=== PATIENT | male | born 1965 | race Caucasian/White ===

== ENCOUNTER → 2023-06-18 08:45 | Outpatient (REF) | payer OTHER, SELFPAY | LOC: RAD 08:45 | PROVIDERS: ATTENDING PHYSICIAN Nurse Practitioner Family | DX: M25.531 Pain in right wrist (principal); M79.641 Pain in right hand | CPT/HCPCS: 73110; 73130 ==

== ENCOUNTER → 2024-02-25 06:52 | Outpatient (REF) | payer BC, SELFPAY | LOC: RCS 06:52 | PROVIDERS: ATTENDING PHYSICIAN Student in an Organized Health Care Education/Training Program; FAMILY PHYSICIAN Internal Medicine | DX: I25.10 Atherosclerotic heart disease of native coronary artery without angina pectoris (principal); Z95.3 Presence of xenogenic heart valve | CPT/HCPCS: 93306 ==

== ENCOUNTER 2025-01-08 09:47 | Emergency (ER) | payer BC, SELFPAY ==
[2025-01-08 09:50] VITALS: BP 143/75
[2025-01-08 10:00] VITALS: BP 149/76; BMI 22.5
--- NOTE | 2025-01-08 10:05 | ED.GENMED ---
History of Present Illness
General
Chief Complaint: Musculo-Skeletal Complaint
Source: patient
Time Seen by Provider: 01/08/25 09:54
History of Present Illness
History of Present Illness:
59-year-old male with extensive cardiac past medical history including two previous TN, aortic stenosis status post aortic valve replacement, CHF, CAD, hypertension, hyperlipidemia who presents to the emergency department after he was working here
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 Patient notes that exertion seems to exacerbate the symptoms and since
arriving to the ER also has been experiencing pain to the right shoulder blade. He endorses some mild lightheadedness but is otherwise denying any diaphoresis, shortness of breath, cough, pleurisy or hemoptysis, lower extremity edema. Patient did
take both his aspirin and Plavix this morning as directed. No fevers or other infectious symptoms.
Past History
Past History
ED Past Medical History: Arrthythmia (afib), CAD, CHF, HTN, Hypercholesterolemia, TN, Valvular disease (), Psychiatric (depression) and Other (Cardiomyopathy, Sleep apnea, CPAPA, )
ED Past Surgical History: Cardiac (Pacemaker, stents X 2) and Other (Hernia repair)
Social History
Tobacco: Former smoker
Alcohol: None
Drug: None
Personal:
Living: with family
Employment: Employed
Family History
Family History: Hypertension
Review of Systems
Review of Systems
All Other Systems: ROS reviewed and negative except as documented in HPI and ROS
Phy Exam
Physical Exam
Physical Exam:
GENERAL: Alert , in no apparent distress
HEAD: Normocephalic atraumatic
EYE: conjunctiva clear
NECK: Supple, no significant adenopathy.
ENT: o/p clr, mmm.
CARDIAC: Regular rate and rhythm
LUNGS: Clear breath sounds bilaterally, no acute respiratory distress, no wheezes/rales/rhonchi
NEUROLOGICAL: Alert and oriented
SKIN: Warm and dry, skin intact.
MUSCULOSKELETAL: well perfused. Easily palpable radial pulse bilaterally. Patient does allow for full range of motion of both upper extremities, does report some discomfort with elbow flexion and extension but states he did also have that when he
had his previous TN
PSYCH: Normal and appropriate interaction.
Scores
Heart Failure Risk
Heart Failure Risk Score: Not Applicable
Heart Score for Chest Pain Patients
STEMI patient?: No
History: Moderately Suspicious
ECG: Nonspecific Repolarization
Age: >45 - <65 years
Risk Factors: >/= 3 Risk Factors or History of CAD
Troponin: </= Normal Limit
Heart Score for Chest Pain Patients: 5
Heart Score Risk: 20.3% MACE over next 6 weeks
Withdrawal Assessment of Alcohol
Withdrawal Assessment Completed?: Not applicable
Course
Orders/Labs/Results
Orders:
Orders
01/08/25 09:49
Electrocardiogram (*1) Urgent
Reason for Study: Chest Pain
EKG- Treatment ONCE
01/08/25 10:02
Electrocardiogram (*1) Urgent
Reason for Study: Chest Pain
EKG- Treatment ONCE
01/08/25 10:03
CR Chest - 2 Views Urgent
Comment:
Reason For Exam: chest pain
01/08/25 10:05
Complete Blood Count/With Diff Urgent
Comprehensive Metabolic Panel Urgent
Troponin I Urgent
01/08/25 10:07
Aspirin Chewable [Low Strength Aspirin] 243 mg PO NOW STA
01/08/25 13:00
Troponin I Urgent
Abnormal Lab Results
01/08/25
10:05
MCH 31.4 H pg
(27.0-31.0)
MPV 11.6 H fL
(7.4-10.4)
Absolute Neuts (auto) 7.6 H 10^3/uL
(1.4-6.5)
Neutrophils % 78.2 H %
(42.2-75.2)
Lymphocytes % 13.9 L %
(20.5-51.1)
Sodium 132 L mmol/L
(135-145)
BUN 21 H mg/dl
(9-20)
Glucose 129 H mg/dl
(70-99)
01/08/25 10:05
01/08/25 10:05
Vital Signs
Initial and Last Documented VS:
Initial Vital Signs
Temp Pulse Resp BP Pulse Ox
98.1 F 76 16 143/75 96
01/08/25 09:50 01/08/25 09:50 01/08/25 09:50 01/08/25 09:50 01/08/25 09:50
Last Documented Vital Signs
Temp Pulse Resp BP Pulse Ox
98.1 F 56 16 106/56 95
01/08/25 09:50 01/08/25 12:00 01/08/25 11:54 01/08/25 11:54 01/08/25 11:54
MDM/Problems Addressed
Differential Diagnosis Includes:
Muscular pain
Forearm strain
Bursitis
Radiculopathy
ACS
Cardiac Arrhythmia
Valvular dysfunction
Dissection
MDM/Problems Addressed:
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 Patient is hemodynamically stable and in no acute distress.
EKG done in triage shows a normal sinus rhythm at a rate of 71 bpm, he does have new T wave inversions inferiorly. Performed cardiac workup. Additional three 81 mg aspirin tablets ordered. Will consult with cardiology pending remaining workup.
*Pulse Oximetry
SaO2: 99
Oxygen Mode of Delivery: Room air
Patient hypoxic: no
*Critical Care Note
Total Time (30-74mins, 75-104mins- exclusive of procedures): Not Applicable
Patient Management
Discussion with other providers: Dormitory Supervisor
Escalation/DeEscalation of care consider admission/obs:
Patient seen by cardiology who feels symptoms are more likely to be muscular in nature which I do also agree with given the clear reproducibility of the symptoms. Given his history cardiology did offer keep the patient with plans to perform cardiac
catheterization tomorrow if patient so chose, patient ultimately wished to be discharged home. His repeat troponin is negative. Will notify the chest pain hotline for follow-up. Stable for discharge and aware of return precautions
ED Attending Note
-
Portions of this chart may have been created with voice recognition software.� Occasional wrong word or��sound alike� substitutions may have occurred due to the inherent limitations of voice recognition software.
Discharge Plan
Departure
Patient Disposition: Home (Routine Discharge)
Date of Disposition: 01/08/25
Time of Disposition: 13:46
Patient with high blood pressure during this ER visit?: No
Discharge Problem:
Pain of right upper extremity
Instructions: Chest Pain CBC Follow Up
Prescriptions:
No Action
aspirin 81 MG tablet,delayed release (DR/EC)
81 mg PO DAILY
ranolazine 500 MG tablet extended release 12 hr
500 mg PO BID Qty: 180 3RF
Entresto 49-51 mg tablet
1 tab PO BID
atorvastatin 80 mg Tablet
80 mg PO QPM Qty: 30 2RF
acetaminophen 325 mg Tablet
650 mg PO Q4HPRN PRN (Reason: mild pain,headache,temp >101F ) Qty: 60 0RF
nitroglycerin 0.3 mg Tablet, Sublingual
0.3 mg SUBLINGUAL Q5-15M PRN (Reason: chest pain)
warfarin 10 mg Tablet
10 mg PO SUMO
dofetilide [Tikosyn] 500 mcg Capsule
500 mcg PO DAILY
carvedilol 6.25 mg tablet
3.125 mg PO BID
warfarin [Jantoven] 5 mg tablet
5 mg PO TUWETHFRSA
meclizine [Antivert] 25 mg tablet,chewable
25 mg PO Q8HPRN PRN (Reason: nausea or vertigo) Qty: 20 0RF
Referrals:
Es Davis MD [Family Provider, Internal Medicine]
Interventions
Interventions:
*Risk Screen - Suicide Last Done: 01/08/25 09:50
*General Assessment Last Done: 01/08/25 10:02
*Neglect/Abuse Screening Last Done: 01/08/25 09:50
*ED- Fall Risk Assessment Last Done: 01/08/25 10:02
*ED COVID-19 Vaccine History Last Done: 01/08/25 10:02
*ED Influenza Vaccine History Last Done: 01/08/25 10:02
ED-Musculoskeletal Assessment Last Done: 01/08/25 10:04
Discharge Date and Time
Print Language: MALAGASY
[2025-01-08 10:15] LABS: Hematocrit 44.4 % (39.0-52.0); Hemoglobin 15.0 g/dL (13.0-18.0); Mean Corp Hgb Conc. 33.8 g/dL (33.0-37.0); Mean Corpuscular Volume 93.1 fL (80.0-94.0); Nucleated Red Blood Cells % 0 % (-); Platelet Count 153 10^3/uL (130-400); Red Cell Dist. Width 12.7 % (11.5-14.5)
[2025-01-08] MEDS: LOW STRENGTH ASPIRIN 243 MG PO (10:15)
[2025-01-08 10:37] LABS: ALT (SGPT) 21 U/L (0-50); AST (SGOT) 22 U/L (17-59); Albumin 4.3 g/dl (3.5-5.0); Alkaline Phosphatase 74 U/L (38-126); Blood Urea Nitrogen 21 mg/dl (9-20); Calcium 9.3 mg/dl (8.4-10.2); Carbon Dioxide 22 mmol/L (22-30); Chloride 104 mmol/L (98-107); Estimated Creatinine Clearance 84 ml/min; Glucose 129 mg/dl (70-99); Potassium 4.2 mmol/L (3.5-5.1); Sodium 132 mmol/L (135-145); Total Protein 6.8 g/dl (6.3-8.2); eGFR > 60.00
[2025-01-08 10:50] LABS: Troponin I < 0.012 ng/ml
[2025-01-08 11:54] VITALS: BP 106/56
[2025-01-08 12:00] VITALS: BP 99/60
--- NOTE | 2025-01-08 12:28 | CON.CAR ---
Consultation
Consultation Request
Date/Time Consultation Requested: 01/08/25
Date/Time Consultation Performed:
Requesting Provider: Faraz Catalan
Performing Provider: Dr Golden
Reason for Consultation: cp
Medical History
-
History of Present Illness:
59 year old male known from prior outpatient and inpatient visits. Cardiac history as noted below currently folllowing with Dr Prather who presents with right arm discomfort. Patient states he has been in his usual state of health and exercises
regularly including walking 2 miles multiple times a day and doing other physical activities. He recently over the last 3 days is having some intermittent right arm discomfort he says he will notice this in the right scapular area right shoulder
with some numbness and abnormal sensation in his right elbow and forearm. Symptoms are mainly noted when he is working with his arms above his head. 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
his head. Symptoms started about 3 days ago he noticed it a bit more yesterday and it kept recurring today every time he would go to do the work above his head it would occur he to stop for about 5 minutes symptoms would resolve but then it would
recur when he resume the activity. Despite having the symptoms he was able to walk on the treadmill for 5 miles on Thursday with no complaints. No complaints of shortness of breath. He remembers having arm discomfort and tingling with some of his
angina in the past so it raised his concern. It is unclear in discussion with him if he also had left arm symptoms at that time. He is not currently having complaints of shortness of breath which was part of his presentation in the past. He has
been compliant with medical therapy
.
PMH
OK and LAD stenting 2013
CAD
Stenting of proximal diagonal. Stenting of LAD into proximal diagonal 2020
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
Chronic RCA occlusion
ICD
AVR, bio AVR 2022
VT.
TIFFANIE
Past Medical History
Past Medical History: Other (As noted)
Social History
Tobacco: Former Smoker
Employment: Other (Works at [employer])
Family History
Family History: Other (Grandparents with CAD. Mother with heart disease nonspecific)
Allergies / Home Medications
Allergy/AdvReac Type Severity Reaction Status Date / Time
procaine HCl (From Novocain) Allergy Anaphylaxis Verified 11/09/22 08:08
�Medication �Instructions �Recorded �Confirmed �Type
aspirin 81 mg tablet,delayed 81 mg PO DAILY Blood clot 03/31/14 11/09/22 History
release prevention/tx
ranolazine 500 mg tablet,extended 500 mg PO BID #180 tabs 05/14/19 11/09/22 Rx
release,12 hr
sacubitril 49 mg-valsartan 51 mg 1 tab PO BID Heart Failure 07/22/22 11/09/22 History
tablet (Entresto)
acetaminophen 325 mg tablet 650 mg (2 x 325 mg) PO Q4HPRN PRN 10/04/22 11/09/22 Rx
mild pain,headache,temp >101F #60
tabs
atorvastatin 80 mg tablet 80 mg PO QPM #30 tabs 10/04/22 11/09/22 Rx
carvedilol 6.25 mg tablet 3.125 mg PO BID 11/09/22 11/09/22 History
dofetilide 500 mcg capsule 500 mcg PO DAILY 11/09/22 11/09/22 History
(Tikosyn)
meclizine 25 mg chewable tablet 25 mg PO Q8HPRN PRN nausea or 11/09/22 Rx
(Antivert) vertigo #20 tabs
nitroglycerin 0.3 mg sublingual 0.3 mg sublingual Q5-15M PRN chest 11/09/22 11/09/22 History
tablet pain
warfarin 10 mg tablet 10 mg PO SUMO 11/09/22 11/09/22 History
warfarin 5 mg tablet (Jantoven) 5 mg PO TUWETHFRSA 09/03/23 09/03/23 History
Review of Systems
-
All other systems: Negative unless noted
Physical Exam
Vital Signs
Temp Pulse Resp BP Pulse Ox
98.1 F 56 16 106/56 95
01/08/25 09:50 01/08/25 12:00 01/08/25 11:54 01/08/25 11:54 01/08/25 11:54
Lab Results
01/08/25 10:05
01/08/25 10:05
Troponin I < 0.012 ng/ml 01/08/25 10:05
Physical Exam
General: Well Developed and Well Nourished
HEENT: Normocephalic and Anicteric
Respiratory: Clear and Other (No wheezes rales or rhonchi)
Cardiac: Regular Rhythm and Other (Left upper chest ICD site fine.)
GI: Non Tender and Other (Positive bowel sounds no overt splenomegaly)
Musculoskeletal: No Clubbing, No Cyanosis, No Edema and Other (While patient had his elbow bent at 90 degrees I had him raise his arm up and abducted 90 degrees. Arm was held in this position for a brief period of time for patient had reproducible
symptoms of some scapular discomfort shoulder discomfort with some radiation of feeling down his arm to his elbow )
Neuro: Awake and Alert
Impression / Plan
-
.
Right arm and shoulder discomfort. Although patient reports having some arm symptoms as part of his presentation with angina in the past today he just has focal right arm symptoms which are reproducible on exam by raising his arm above his head and
creating some abduction. This clearly reproduce the symptoms he is reporting and then the symptoms resolved shortly after putting his arm down. Clearly there is a musculoskeletal cause for his the symptoms. Not clear that he is having a second
type of cause for his arm discomfort. I specked a lot of his symptoms have been precipitated by the fact that he has to work with his arms above his head as part of his job. I explained to him if he has any additional concern that he is having
other symptoms besides what was reproduced with movement of his arm then we could admit him for observation.
- Continue current medical therapy
- Additional observation in ER
- If patient remains pain-free and troponins are unremarkable then may be reasonable to discharge with additional outpatient follow-up but patient will need further assessment by Ortho or PCP to adjust address his right upper extremity issues
particularly since he has to do physical activity as part of his job.
- If patient has any additional concerns regarding chest discomfort or shortness of breath or is having other symptoms that are not related to position then we could admit for further observation. Otherwise I will plan for additional outpatient
cardiac testing as a further evaluation particularly since he has to do physical activity as part of his job
Data Reviewed
-
EKG: Report Reviewed by me
Radiology: Report Reviewed by me
Medical Tests (Nuc Med, Echo etc): Discussed with Physician
Labs: Labs Reviewed by me
[2025-01-08 13:00] VITALS: BP 118/67
[2025-01-08 13:36] LABS: Troponin I < 0.012 ng/ml
== END 2025-01-08 14:15 | disposition home or self-care (01) ==
LOC: EMR 09:47
PROVIDERS: Physician Assistant Medical; EMERGENCY PHYSICIAN Student in an Organized Health Care Education/Training Program; FAMILY PHYSICIAN Internal Medicine
DX: M79.621 Pain in right upper arm (principal); I25.10 Atherosclerotic heart disease of native coronary artery without angina pectoris; I48.91 Unspecified atrial fibrillation; I42.8 Other cardiomyopathies; I35.0 Nonrheumatic aortic (valve) stenosis; I11.0 Hypertensive heart disease with heart failure; I50.9 Heart failure, unspecified; E78.00 Pure hypercholesterolemia, unspecified; I25.2 Old myocardial infarction; G47.33 Obstructive sleep apnea (adult) (pediatric); F32.A Depression, unspecified; Z79.82 Long term (current) use of aspirin; Z79.02 Long term (current) use of antithrombotics/antiplatelets; Z95.0 Presence of cardiac pacemaker; Z95.3 Presence of xenogenic heart valve; Z95.5 Presence of coronary angioplasty implant and graft; Z87.891 Personal history of nicotine dependence; Z82.49 Family history of ischemic heart disease and other diseases of the circulatory system
CPT/HCPCS: 99285; 71046; 80053; 84484; 85025; 93005

== ENCOUNTER → 2025-01-11 11:34 | Outpatient (REF) | payer BC, SELFPAY | LOC: HWRCS 11:34 | PROVIDERS: ATTENDING PHYSICIAN Internal Medicine Cardiovascular Disease; FAMILY PHYSICIAN Internal Medicine | DX: I25.10 Atherosclerotic heart disease of native coronary artery without angina pectoris (principal); R07.89 Other chest pain | CPT/HCPCS: 78452; 93017; A9500; J2785 ==

== ENCOUNTER → 2025-01-23 07:44 | Outpatient (REF) | payer BC, SELFPAY ==
[2025-01-23 10:17] LABS: ALT (SGPT) 24 U/L (0-50); AST (SGOT) 22 U/L (17-59); Albumin 4.3 g/dl (3.5-5.0); Alkaline Phosphatase 75 U/L (38-126); Blood Urea Nitrogen 24 mg/dl (9-20); Calcium 9.2 mg/dl (8.4-10.2); Carbon Dioxide 27 mmol/L (22-30); Chloride 103 mmol/L (98-107); Glucose 98 mg/dl (70-99); HDL Cholesterol 35 mg/dl; LDL Cholesterol, Calculated 65 mg/dl; Potassium 5.4 mmol/L (3.5-5.1); Sodium 134 mmol/L (135-145); Total Protein 7.0 g/dl (6.3-8.2); Very Low Density Lipoprotein 13 mg/dl (0-30); eGFR > 60.00
== END ==
LOC: REG 07:44
PROVIDERS: ATTENDING PHYSICIAN Student in an Organized Health Care Education/Training Program; FAMILY PHYSICIAN Internal Medicine; REFERRING PHYSICIAN Internal Medicine Cardiovascular Disease
DX: I25.10 Atherosclerotic heart disease of native coronary artery without angina pectoris (principal); R07.89 Other chest pain
CPT/HCPCS: 36415; 80053; 80061

== ENCOUNTER 2025-02-19 17:01 | Emergency (ER) | payer OTHER, SELFPAY ==
[2025-02-19 17:03] VITALS: BP 158/99
[2025-02-19 18:00] VITALS: BP 105/72
--- NOTE | 2025-02-19 18:14 | ED.GENMED ---
History of Present Illness
General
Chief Complaint: Musculo-Skeletal Complaint
Time Seen by Provider: 02/19/25 17:58
History of Present Illness
History of Present Illness:
Patient is a 59-year-old man with history of CHF, CAD, hypertension, hyperlipidemia presenting to the emergency department after a fall with left shoulder pain. 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
He then landed on his right side. He states that the sudden pressure landing on his left elbow caused some pain to the left shoulder. He states it is a shocklike sensation. No numbness tingling. No weakness. He is having some residual pain to
his left shoulder.
Past History
Past History
ED Past Medical History: Arrthythmia (afib), CAD, CHF, HTN, Hypercholesterolemia, TN, Valvular disease (), Psychiatric (depression) and Other (Cardiomyopathy, Sleep apnea, CPAPA, )
ED Past Surgical History: Cardiac (Pacemaker, stents X 2) and Other (Hernia repair)
Social History
Tobacco: Former smoker
Alcohol: None
Drug: None
Personal:
Living: with family
Employment: Employed
Family History
Family History: Hypertension
Phy Exam
Physical Exam
Physical Exam:
GENERAL: no acute distress
HEENT: atraumatic, extraocular muscles intact
NECK: no midline tenderness, normal range of motion
BACK: no midline tenderness, no other obvious trauma
CHEST: no tenderness, no flail segment, no subcutaneous emphysema, no other obvious trauma
LUNGS: clear to auscultation bilaterally
CARDIOVASCULAR: regular rate and rhythm
ABDOMEN: soft, non-tender, no masses, no other obvious trauma
EXTREMITIES: Left upper extremity with tenderness to the anterior shoulder and proximal humerus, full range of motion, neurovascularly intact, otherwise moving all extremities, distal pulses intact, no other obvious trauma
NEUROLOGIC: awake, alert x 3, no focal deficits
Course
Orders/Labs/Results
Orders:
Orders
02/19/25 17:05
CR Shoulder, Trauma - Left Urgent
Reason For Exam: pain
02/19/25 18:09
Acetaminophen [Tylenol] 1,000 mg PO NOW STA
02/19/25 20:07
Sling Left-Treatment ONCE
Vital Signs
Initial and Last Documented VS:
Initial Vital Signs
Temp Pulse Resp BP Pulse Ox
98.2 F 73 16 158/99 99
02/19/25 17:03 02/19/25 17:03 02/19/25 17:03 02/19/25 17:03 02/19/25 17:03
Last Documented Vital Signs
Temp Pulse Resp BP Pulse Ox
98.2 F 73 16 105/72 97
02/19/25 17:03 02/19/25 17:03 02/19/25 17:03 02/19/25 18:00 02/19/25 18:30
MDM/Problems Addressed
Differential Diagnosis Includes:
59-year-old man presenting to the emergency department left-sided shoulder pain after mechanical fall. On arrival vitals are notable for hypertension exam does show tenderness palpation to the anterior shoulder and proximal humerus. Concern for
fracture versus muscular pain. Could be a dislocation that relocated though less likely as patient did not feel a popping sensation. Will pain control. Will obtain x-ray.
*Pulse Oximetry
SaO2: 99
Oxygen Mode of Delivery: Room air
Patient hypoxic: no
*Critical Care Note
Total Time (30-74mins, 75-104mins- exclusive of procedures): Not Applicable
Update Note
Update Note:
X-ray per my interpretation with no obvious fracture. Will discharge at this time. After shared decision making we will give sling.
ED Attending Note
-
Portions of this chart may have been created with voice recognition software.� Occasional wrong word or��sound alike� substitutions may have occurred due to the inherent limitations of voice recognition software.
Discharge Plan
Departure
Patient Disposition: Home (Routine Discharge)
Date of Disposition: 02/19/25
Time of Disposition: 20:07
Patient with high blood pressure during this ER visit?: Yes
Discharge Problem:
Acute shoulder pain
Instructions: How to Use a Shoulder Sling
Prescriptions:
No Action
aspirin 81 MG tablet,delayed release (DR/EC)
81 mg PO DAILY
ranolazine 500 MG tablet extended release 12 hr
500 mg PO BID Qty: 180 3RF
Entresto 49-51 mg tablet
1 tab PO BID
atorvastatin 80 mg Tablet
80 mg PO QPM Qty: 30 2RF
acetaminophen 325 mg Tablet
650 mg PO Q4HPRN PRN (Reason: mild pain,headache,temp >101F ) Qty: 60 0RF
nitroglycerin 0.3 mg Tablet, Sublingual
0.3 mg SUBLINGUAL Q5-15M PRN (Reason: chest pain)
warfarin 10 mg Tablet
10 mg PO SUMO
dofetilide [Tikosyn] 500 mcg Capsule
500 mcg PO DAILY
carvedilol 6.25 mg tablet
3.125 mg PO BID
warfarin [Jantoven] 5 mg tablet
5 mg PO TUWETHFRSA
meclizine [Antivert] 25 mg tablet,chewable
25 mg PO Q8HPRN PRN (Reason: nausea or vertigo) Qty: 20 0RF
Referrals:
Es Davis MD [Family Provider, Internal Medicine]
Activity Restrictions/Additional Instructions:
Thank You for choosing [facility].
It was a pleasure meeting you and taking part in your care.
You were seen in the Emergency Department today for shoulder pain. While you were here we performed an x-ray, which was reassuring.
We would like for you to follow up with your primary care physician for further evaluation. If you experience fever, worsening of your symptoms, or develop any other new or concerning symptoms, please return to the Emergency Department immediately.
Please see the attached sheet for additional information.
Interventions
Interventions:
*Risk Screen - Suicide Last Done: 02/19/25 17:03
*General Assessment Last Done: 02/19/25 17:36
*Neglect/Abuse Screening Last Done: 02/19/25 17:03
*ED COVID-19 Vaccine History Last Done: 02/19/25 17:36
*ED Influenza Vaccine History Last Done: 02/19/25 17:36
[facility] Risk Assessment Tool Last Done: 02/19/25 17:36
ED-Musculoskeletal Assessment Last Done: 02/19/25 18:36
Discharge Date and Time
Print Language: FRENCH
[2025-02-19] MEDS: TYLENOL 1000 MG PO (18:35)
== END 2025-02-19 20:14 | disposition home or self-care (01) ==
LOC: EMR 17:01
PROVIDERS: EMERGENCY PHYSICIAN Student in an Organized Health Care Education/Training Program; FAMILY PHYSICIAN Internal Medicine
DX: M25.512 Pain in left shoulder (principal); W19.XXXA Unspecified fall, initial encounter; E78.00 Pure hypercholesterolemia, unspecified; G47.30 Sleep apnea, unspecified; I11.0 Hypertensive heart disease with heart failure; I50.9 Heart failure, unspecified; I25.10 Atherosclerotic heart disease of native coronary artery without angina pectoris; I25.2 Old myocardial infarction; I42.8 Other cardiomyopathies; I48.91 Unspecified atrial fibrillation; Z95.0 Presence of cardiac pacemaker; Z95.5 Presence of coronary angioplasty implant and graft; Z87.891 Personal history of nicotine dependence
CPT/HCPCS: 99283; 73030